=== PATIENT | female | born 1970 | race Caucasian/White ===

== ENCOUNTER → 2016-11-11 | Outpatient (CLI) | payer BC ==
--- NOTE | ~2016-11-11 | MY29 ---
[facility] A Service of [facility] RADIOLOGY TEXT RESULTS PATIENT: NIKO PAUL LOCATION: [facility] : 72 UNIT #: [id number] AGE: [address]: Betsy Cisneros MD SEX: F ORDER DR: [id number] [facility] [address] [place] [place], [place] [address] [id number] O MR#: [id number] Acc #: [id number] NAME: NKIO PAUL V. : 1970 SEX: F STUDY DATE/TIME: 11/11/2016 13:34 UNIT: [facility] ROOM: STUDY DESCRIPTION: MY [facility] SCREENING W/ CAD BILAT Attending Physician: Betsy Cinseros M.D. Referring Physician: Betsy Cisneros M.D. Ordering Physician: Betsy Cisneros M.D. Primary Care Physician: Betsy Cisneros M.D. MEDICAL IMAGING REPORT This report is preliminary unless electronic signature is present EXAM Digital screening mammogram 11/11/2016 HISTORY 46-year-old woman positive family history, both grandmothers. Annual screen. COMPARISON Mammograms date to 01/24/2010 with most recent 09/23/2015 FINDINGS Digital imaging of each breast was completed utilizing screening protocol. Review includes FDA-approved CAD device. Breast parenchyma is partially fatty replaced. Fibroglandular opacities remain upper outer quadrants of the each breast slightly dominant and stable on the left. I see no suspicious mass. There are no interval occurring microcalcifications and no architectural deformity. IMPRESSION Negative mammogram. Annual screening recommended. Patients over the age of 40 are entered into a reminder system with target due date for the next mammogram. A result letter will also be sent to the patient. BIRADS: 1, negative. Dictated by... Reinier Monsalve M.D. THIS IS AN ELECTRONICALLY VERIFIED REPORT Reinier Monsalve M.D. at 11/12/2016 8:02 AM [facility] A Service of [facility] RADIOLOGY TEXT RESULTS PATIENT: NIKO PAUL LOCATION: [facility] : 72 UNIT #: [id number] AGE: [address]: Betsy Cisneros MD SEX: F ORDER DR: DILCIA/dominic TD: 11/11/2016 16:08 JOB #: [id number] MEDICAL IMAGING REPORT Page 1 of 1 COPY
== END | disposition home or self-care (01) ==
LOC: CWCC 11-09 14:45
DX: Z12.31 Encounter for screening mammogram for malignant neoplasm of breast (principal); Z80.3 Family history of malignant neoplasm of breast
CPT/HCPCS: G0202